=== PATIENT | male | born 1975 | race Caucasian/White ===

== ENCOUNTER → 2017-09-30 | Outpatient (CLI) | payer OTHER ==
[~2017-09-30] MED LIST: ADDERALL 5 MG TA5 M1 PO; AMITRIPTYLINE H25 M2 PO; ASPIR 8181 MG PO; BACTRIM DS TAB1 EACH PO; BRILINTA60 MG PO; BUSPIRONE HCL10 MG PO; CHANTIX1 MG PO; CIPROFLOXACIN500 M1 PO; CLARITIN10 MG PO; CLONAZEPAM 1 MG1 M1 PO; CYCLOBENZAPRINE5 MG PO; GEODON20 M1 IM; HYDROCODONE-AP1 EAC6 PO; IBUPROFEN 800800 M1 PO; K-DUR 20 MEQ T20 MEQ PO; LIPITOR 20 MG T20 M1 PO; LOPRESSOR25; MEDROLDOSEPACK PO; NICOTINE TRANSD21 M1 TRANSDERM; NITROGLYCERIN0.4 MG SUBLING; NORCO 5-325 TA1 EACH PO; PEPCID20 MG PO; PREDNISONE 10 M10 MG PO; PRILOSEC20 MG PO; STEROID PACK; TYLENOL325 MG PO; VICODIN 5-5001 EACH PO; XANAX 0.5 MG0.5 MG PO; ZANTAC 150MG T150 M1; ZANTAC 150MG T150 MG PO; ZOFRAN4 MG PO
[2017-09-30 08:53] LABS: ABSOLUTE BASOPHILS 0.1 thou/uL (0.0-0.2); ABSOLUTE EOSINOPHILS 0.4 thou/uL (0.0-0.7); ABSOLUTE LYMPHOCYTES 2.6 thou/uL (0.8-5.3); BASOPHILS 0.6 %; EOSINOPHILS 4.1 %; HEMATOCRIT 45.9 % (42.0-52.0); HEMOGLOBIN 15.7 gm/dL (14.0-18.0); LYMPHOCYTES 28.7 %; MCH 30.3 pg (26.0-34.0); MCHC 34.3 g/dL (28.0-37.0); MCV 88.3 fL (80.0-100.0); MONOCYTES 11.2 %; MPV 8.2 fl. (7.2-11.1); NUCLEATED RBCS 0 /100WBC; PLATELET COUNT* 240 thou/uL (150-400); POLYS 55.4 %; RBC 5.19 mil/uL (4.50-6.00); RDW-CV 13.2 % (10.5-14.5)
[2017-09-30 09:22] LABS: ALBUMIN 3.8 g/dL (3.4-5.0); CALCIUM 8.6 mg/dL (8.5-10.1); CREATININE 0.8 mg/dL (0.6-1.3); POTASSIUM 3.9 mmol/L (3.5-5.1); TOTAL BILIRUBIN 0.5 mg/dL (<0.1-1.0); TOTAL PROTEIN 7.5 g/dL (6.4-8.2)
[2017-09-30 09:48] LABS: ESR (SEDRATE) 5 mm/hr (0-15)
== END ==
LOC: M.LAB 06:56 → M.MRI 06:56
PROVIDERS: Psychiatry & Neurology Neuromuscular Medicine
DX: G93.0 Cerebral cysts (principal); J32.9 Chronic sinusitis, unspecified; K21.9 Gastro-esophageal reflux disease without esophagitis; Z72.0 Tobacco use

== ENCOUNTER → 2017-11-10 | Outpatient (CLI) | payer OTHER ==
--- NOTE | 2017-11-12 13:44 | SLEEP ---
[address] [address] SLEEP STUDY REPORT Name: BRENDAN DUEÑAS ACE [facility] [id number] Admission: 11/10/17 Attend Phys: Farooq Saul MD Discharge: Date of : 71 Report #: [id number] THIS REPORT FOR: //name// CC: Shiv Saul MD This study has been reviewed in its entirety by a board certified sleep specialist DATE OF SERVICE: 11/10/2017 ATTENDING PHYSICIAN: Farooq Saul MD. The patient is a 42-year-old who weighs 265 pounds and is 74 inches tall with a BMI of 34. The patient underwent a sleep study at [facility]. During the night study, the patient spent 451 minutes in bed and slept for 305 minutes with a low sleep efficiency of 67.6%. Sleep latency was 71.5 minutes, which was prolonged with a REM latency of 310 minutes. Overall, sleep architecture showed normal stage 1 sleep, increased stage 2 sleep, which was 58% of total sleep time; increased N3 sleep, which was 29% of the total sleep time; and reduced REM sleep, which was 9.5% of the total sleep time. During the night of study, the patient had 2 central apneas, no mixed or obstructive apneas. There were 54 hypopneas. The patient's apnea-hypopnea index was 11 per hour. No significant respiratory events were seen during REM sleep. The patient's supine index was 41 per hour. EKG monitoring revealed normal sinus rhythm. Average heart rate during sleep was 63 beats per minute. No sustained arrhythmias were observed. PLMS were seen at an index of 57.9 per hour and 6 per hour caused EEG arousals. Nocturnal oximetry study revealed an average oxygen saturation of 95% with the lowest of 84%. Three minutes were spent in oxygen saturation of less than 89%. The patient was attempted on CPAP, but he could not tolerate nasal mask or a full face mask and requested to continue as the diagnostic study. IMPRESSION: 1. Mild sleep apnea-hypopnea syndrome with worsening during supine sleep. Total apnea-hypopnea index 11 per hour with a supine apnea-hypopnea index of 41 per hour. 2. Mild nocturnal hypoxia secondary to obstructive sleep apnea. 3. Severe periodic [place] [address] SLEEP STUDY REPORT Name: BRENDAN DUEÑAS ACE [facility] [id number] Admission: 11/10/17 Attend Phys: Farooq Saul MD Discharge: Date of : 71 Report #: [id number] RECOMMENDATIONS: 1. If the patient is clinically symptomatic, then he would benefit from treatment of sleep apnea with either an oral appliance as recommended by the dentist versus trial of CPAP titration. 2. Weight loss is strongly advised. 3. Avoid supine sleep. 4. The patient should also be further evaluated for symptoms of restless legs during the day. 5. If patient returns for CPAP titration study, then nasal pillows can be attempted as the patient felt claustrophobic with nasal mask and a full face mask. <ELECTRONICALLY SIGNED> By: Jas Elizondo MD 11/12/17 [id number] Elizondo MD /nt
== END ==
LOC: M.SLEEPLAB 19:59
DX: G47.33 Obstructive sleep apnea (adult) (pediatric) (principal)

== ENCOUNTER → 2017-11-20 | Outpatient (CLI) | payer OTHER | LOC: M.MRI 10-28 12:58 | DX: I67.82 Cerebral ischemia (principal); R93.8 Abnormal findings on diagnostic imaging of other specified body structures; R41.3 Other amnesia ==

== ENCOUNTER 2019-03-26 15:52 | Emergency (ER) | payer OTHER ==
[~2019-03-26] VITALS: Ht 188 cm; Wt 124.7 kg
[2019-03-26] MEDS ORDERED: LEXAPRO20 MG PO (16:08)
[2019-03-26] MEDS ORDERED: PANTOPRAZOLE SO40 MG PO (16:09)
[2019-03-26] MEDS ORDERED: NORCO 5-325 TA1 EAC1 PO (18:49)
[2019-03-26] MEDS ORDERED: IBUPROFEN 800800 M1 PO (18:49)
[2019-03-26 19:00] VITALS: BP 132/70
== END 2019-03-26 19:08 | disposition home or self-care (01) ==
LOC: M.ERS 15:52
DX: M25.522 Pain in left elbow (principal); M79.632 Pain in left forearm; K21.9 Gastro-esophageal reflux disease without esophagitis; F17.210 Nicotine dependence, cigarettes, uncomplicated